=== PATIENT | male | born 1965 | race Caucasian/White ===

== ENCOUNTER → 2020-11-28 | Outpatient (CLI) | payer OTHER | LOC: M.RAD 10:25 | PROVIDERS: ATTEND Orthopaedic Surgery | DX: M16.0 Bilateral primary osteoarthritis of hip (principal); M19.012 Primary osteoarthritis, left shoulder; M47.812 Spondylosis without myelopathy or radiculopathy, cervical region; M11.262 Other chondrocalcinosis, left knee; M11.261 Other chondrocalcinosis, right knee; M50.822 Other cervical disc disorders at C5-C6 level; M77.31 Calcaneal spur, right foot; M77.32 Calcaneal spur, left foot; M11.232 Other chondrocalcinosis, left wrist; M11.231 Other chondrocalcinosis, right wrist; M48.02 Spinal stenosis, cervical region; M25.78 Osteophyte, vertebrae; M19.072 Primary osteoarthritis, left ankle and foot; M19.071 Primary osteoarthritis, right ankle and foot; M19.022 Primary osteoarthritis, left elbow; M19.021 Primary osteoarthritis, right elbow; M17.0 Bilateral primary osteoarthritis of knee; M19.011 Primary osteoarthritis, right shoulder; M19.032 Primary osteoarthritis, left wrist; M19.031 Primary osteoarthritis, right wrist; M51.36 Other intervertebral disc degeneration, lumbar region ==